=== PATIENT | male | born 1945 | race Caucasian/White ===

== ENCOUNTER 2019-09-15 06:29 | Day surgery (SDC) | payer OTHER ==
[~2019-09-15] VITALS: Ht 170.2 cm; Wt 86.2 kg
[~2019-09-15 06:29] MED LIST: ALLOPURINOL 10100 M3 PO; ASA81BEC PO; CARVEDILOL12.5 MG PO; FISH OIL 1,0001 EAC9 PO; MAGNESIUM400 MG PO; MULTI VITAMIN1 EACH PO; PRAVACHOL40 MG PO; VITAMIN C1000 MG PO; ZESTRIL10 MG PO; [UNRECOGNIZED DRUG - OTHER] PO
[2019-09-15 07:43] VITALS: BP 165/783
--- NOTE | 2019-09-19 06:14 | O ---
[facility] [place] [address] OPERATIVE REPORT Name: MARINAJEAN CARLOS Room #: DEP [facility].#: [id number] Admission: 09/15/19 Attend Phys: Barry Mukherjee MD Discharge: 09/15/19 Date of : 43 Report #: [id number] THIS REPORT FOR: //name// CC: GIANA Ovied[place] Physician staff Steven Mukherjee DATE OF SERVICE: 09/15/2019 PREOPERATIVE DIAGNOSIS: Basal cell carcinoma of left upper lid. POSTOPERATIVE DIAGNOSIS: Basal cell carcinoma of left upper lid. PROCEDURE: Excision of basal cell carcinoma of left upper lid with frozen section, control of margins and myocutaneous flap defect. SURGEON: Barry Mukherjee MD. SOCIAL WORK FACULTY MEMBER: None. ANESTHESIA: MAC. COMPLICATIONS: None. INDICATIONS FOR SURGERY: This pleasant 74-year-old gentleman has a nodular ulcerative lesion in his left upper lid extending into the infratemporal fossa that appears to be a basal cell carcinoma. It has been previously biopsied and proven to be such. He presents today for excision of the basal cell carcinoma with frozen sections ____and subsequent reconstruction of the ensuing defect. Informed consent was obtained to include, but not limited to the potential risk for loss of vision, bleeding, infection, failure to improve the problem, the potential need for further surgery or treatment. DESCRIPTION OF PROCEDURE: The patient was taken to the operating room where 2% Xylocaine with epinephrine mixed with equal parts 0.75% Marcaine with Wydase was administered transcutaneously to the left upper lid, the left brow and the left infratemporal fossa. The patient was subsequently prepped and draped in the usual sterile fashion. A fine tip skin marking pen was then utilized to outline the lesion including approximately 2 mm of normal appearing tissue around its margins. The incisions were then made with a 15C blade and carried down into the orbicularis muscle. The deeper dissection was then accomplished with a Sheldon scissor as the lesion was sharply excised and from underlying orbital septum. The lesion was then oriented on a drawing for the waiting pathologist as hemostasis was achieved in the field with diligent pinpoint [facility] [address] [place] [address] OPERATIVE REPORT Name: JEAN CARLOS GRAY Room #: DEP [facility] [place] M.R.#: [id number] Admission: 09/15/19 Attend Phys: Barry Mukherjee MD Discharge: 09/15/19 Date of : 43 Report #: [id number] monopolar cautery. The pathologist snap froze that specimen and found that all margins examined appeared to be free of tumor. The site was inspected and a myocutaneous flap developed laterally to be rotated back into the defect bed. Wide undermining was undertaken, following which the flap was developed and a relaxing incision made. The flap was then advanced and closed with multiple interrupted 6-0 chromic sutures and 6-0 plain gut sutures. It was oriented in an oblique fashion so as not to induce lagophthalmos. The wound was then cleaned and dressed with erythromycin ophthalmic ointment. The patient subsequently transported to the recovery area having tolerated the procedure well with no anesthetic or operative complications being noted. <ELECTRONICALLY SIGNED> By: Barry Mukherjee MD 09/19/19 0614 [id number] [id number] Barry Mukherjee MD /nt
--- NOTE | 2019-09-19 11:07 | PATH ---
[facility] [place] [address] PATHOLOGY RPT PROCEDURE Name: JEAN CARLOS GRAY Room #: DEP [facility].#: [id number] Admission: 09/15/19 Date of : 43 Discharge: 09/15/19 Report #: [id number] Path Case #: [id number] [facility] Accession Number: [id number] . 01 Material submitted: . lid - LEFT UPPER LID BASAL CELL CARCINOMA. Modifiers: left, upper . 01 Clinical history: . Excision of BCCA frozen section flap repair. . 02 Frozen section diagnosis: . FROZEN SECTION DIAGNOSIS: (Dr. Barbara Mcclain) . FSA1: Skin, left upper eyelid BCC, excision: - Negative for invasive carcinoma at the inked side margin on FS slide; superior and inferior tips not examined on FS sections. - These findings are discussed with Dr. Barry Mukherjee in the OR 6 at [facility] and a written report is placed in the patient's chart. (IUV:pit 09/15/2019) . FROZEN SECTION GROSS DESCRIPTION: The specimen is received fresh from the OR labeled with the patient's name, and "left upper eyelid basal cell carcinoma", and consists of an oval excision of skin measuring 1.6 x 1.1 x 0.3 cm. There is a ariel indicating 12:00. The specimen is additionally oriented as superior (12:00), lateral, inferior and medial. At this point the specimen is inked as follows: The 12:00 to 3:00 to 6:00 (inferior) are inked black including the deep margin. The inferomedial margin is inked blue, and the superomedial margin is inked green. At this time the specimen is serially sectioned into four pieces and submitted entirely for frozen section as FSA1. . (IUV:pit 09/15/2019) . Frozen section performed at [facility], [address], [place] [address]. IZV/QTP . 02 Diagnosis: Skin, left upper lid basal cell carcinoma, excision: - BASAL CELL CARCINOMA. - Side margins and deep margin free of malignancy. . (IUV:tiago; 09/16/2019) QMS 09/16/2019 1300 Local [facility] [address] [place] [address] PATHOLOGY RPT PROCEDURE Name: JEAN CARLOS GRAY Room #: DEP [facility].#: [id number] Admission: 09/15/19 Date of : 43 Discharge: 09/15/19 Report #: [id number] Path Case #: [id number] . 02 Comment: Due to the nature of the skin specimen received, the tips of the specimen show carcinoma; however these were not embedded en-face, therefore do not represent true margins. The same was discussed intraoperatively with Dr. Barry Mukherjee. The intraoperative diagnosis/findings remain unchanged. . (IUV:tiago; 09/16/2019) . 02 Electronically signed: . Barbara Mcclain MD, Pathologist NPI- [id number] . 01 Gross description: . PLEASE SEE FROZEN SECTION FOR GROSS DESCRIPTION SYC/QTP 09/16/2019 1258 Local . 02 Pathologist provided ICD-10: C44.1191 . 02 CPT . 375501, 524271 Specimen Comment: A courtesy copy of this report has been sent to [phone] Specimen Comment: Report sent to Specimen Comment: A duplicate report has been generated due to demographic updates. Performed at: [address], [place] [id number] MD King Puentes MD Phone: [phone] Performed at: [address] [id number] MD Barbara Mcclain MD Phone: [phone]
== END 2019-09-15 10:00 | disposition home or self-care (01) ==
LOC: OR 06:29 → TBA 06:30 → OR 10:00
DX: C44.1191 Basal cell carcinoma of skin of left upper eyelid, including canthus (principal); I10 Essential (primary) hypertension; E78.5 Hyperlipidemia, unspecified; M10.9 Gout, unspecified; Z98.890 Other specified postprocedural states; Z79.899 Other long term (current) drug therapy; Z85.828 Personal history of other malignant neoplasm of skin; Z98.52 Vasectomy status; Z79.82 Long term (current) use of aspirin
CPT/HCPCS: 50010; 50101; 50386; 50398; 51636; 56531; 62110; 62850; 70005